=== PATIENT | female | born 1960 ===

== ENCOUNTER 2023-10-01 07:30 | Outpatient (CLI) | payer OTHER ==
[~2023-10-01 07:30] MED LIST: INTESTINEX680 MG PO; IOPHEN-C NR LI473 ML; PREVACID30 MG PO; SYNTHROID50 MCG PO; TESSALON200 MG; ZANTAC150 MG PO; ZITHROMAX500 MG; [UNRECOGNIZED DRUG - OTHER]
== END 2023-10-01 07:33 | disposition home or self-care (01) ==
LOC: SONOGRAMA 07:30
PROVIDERS: ATTEND Pathology Anatomic Pathology & Clinical Pathology
DX: E04.8 Other specified nontoxic goiter (principal)